=== PATIENT | male | born 1995 | race Two or more races ===

== ENCOUNTER 2021-01-14 03:44 | Inpatient (IN) | payer OTHER ==
[~2021-01-14] VITALS: Ht 172.7 cm; Wt 68.0 kg
[~2021-01-14 03:44] MED LIST: VITAMIN C100 MG
[2021-01-15] MEDS ORDERED: INTESTINEX680 M2 PO (10:09)
[2021-01-15] MEDS ORDERED: ZITHROMAX TRI-500 MG PO (10:09)
[2021-01-15] MEDS ORDERED: PEPCID AC20 MG PO (10:10)
[2021-01-15] MEDS ORDERED: NEURONTIN300 MG PO (10:10)
== END 2021-01-15 10:59 | disposition home or self-care (01) | DRG 343 ==
LOC: ER 03:44 → SEC-K 09:39 → SURG 12:29
PROVIDERS: Surgery; ADMIT Internal Medicine; ATTEND Internal Medicine
PROC: 0DTJ4ZZ Resection of Appendix, Percutaneous Endoscopic Approach (ICD-10-PCS; principal; 2021-01-14 10:00)
DX: K35.80 Unspecified acute appendicitis (principal); K29.70 Gastritis, unspecified, without bleeding; B96.0 Mycoplasma pneumoniae [M. pneumoniae] as the cause of diseases classified elsewhere; D72.828 Other elevated white blood cell count; R10.13 Epigastric pain; R11.2 Nausea with vomiting, unspecified; Z20.822 Contact with and (suspected) exposure to COVID-19